=== PATIENT | female | born 1990 | race American Indian/Alaskan Native ===

== ENCOUNTER 2017-09-08 05:05 | Emergency (ER) | payer SELFPAY ==
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
[2017-09-08] MEDS ORDERED: NORCO 5/325 PO ONE (11:50)
[2017-09-08 12:04] VITALS: BP 154/112
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
[2017-09-08] MEDS ORDERED: BOOSTRIX IM ONE (13:26)
== END 2017-09-08 13:41 | disposition home or self-care (01) ==
LOC: ED 05:05
DX: S05.12XA Contusion of eyeball and orbital tissues, left eye, initial encounter (principal); Y04.2XXA Assault by strike against or bumped into by another person, initial encounter; Y93.89 Activity, other specified; Y99.8 Other external cause status; Y92.009 Unspecified place in unspecified non-institutional (private) residence as the place of occurrence of the external cause
CPT/HCPCS: 70150; 90471; 90715